=== PATIENT | female | born 1995 | race Caucasian/White ===

== ENCOUNTER 2017-03-09 12:23 | Emergency (ER) | payer OTHER ==
[2017-03-09 12:29] VITALS: BP 138/82; PULSE 94; RESP 16; TEMP 98.4; O2SAT 97
--- NOTE | 2017-03-09 14:24 | EDPHY ---
H & P Stated Complaint: Arrives on crutches w/ R knee injury during rugby game Time Seen by Provider: 03/09/17 13:46 HPI/ROS: Chief complaint: Right knee pain History of present illness: 21-year-old female presents to the emergency department for right knee pain. Patient was playing rugby when she twisted her knee. She felt a pop. Since then she has had pain. Difficulty ambulating. No report of open wounds. No abnormal coolness or paresthesias in the leg. No report of trauma to other parts of the body. - Personal History LMP (Females 10-55): 22-28 Days Ago Current Tetanus Diphtheria and Acellular Pertussis (TDAP): Yes - Medical/Surgical History Other PMH: healthy - Social History Smoking Status: Never smoked - Physical Exam Exam: General: Alert, nontoxic Skin: No open wounds to the right knee. Musculoskeletal: There is discomfort with both flexion extension. Diffuse tenderness. Joint does appear stable but somewhat limited due to discomfort. Vascular: DP and PT pulses 2+. Neurologic sensation intact in the right leg. Constitutional: Initial Vital Signs Temperature (C) 36.9 C 03/09/17 12:24 Heart Rate 94 03/09/17 12:24 Respiratory Rate 16 03/09/17 12:24 Blood Pressure 138/82 H 03/09/17 12:24 O2 Sat (%) 97 03/09/17 12:24 O2 Delivery Mode Room Air Allergies/Adverse Reactions: No Known Allergies Allergy (Unverified 03/09/17 12:29) Home Medications: Medication Instructions Recorded Hydrocodone/APAP 5/325 [[place] 1 tab PO Q6H #6 tab 03/09/17 5/325 (*)] Medical Decision Making - Diagnostics Imaging: I viewed and interpreted images myself Procedures: Procedure: Splint placement. A knee immobilizing splint was applied. After application of the splint I returned and re-examined the patient. The splint was adequately immobilizing the joint and distal to the splint the patient's circulation and sensation was intact. Patient given crutches ED Course/Re-evaluation: Patient seen under the supervision of my secondary supervising physician Dr. Amparo Whitten. Patient presents to the emergency department for a right knee injury. The leg is neurovascularly intact. X-rays are negative. I am concerned for soft tissue injury. She is placed in a knee immobilizer and given crutches. Pain management is discussed. She is asked to follow up with Orthopedics for recheck. Return precautions are given. Patient voiced understanding and agreement with plan. Differential Diagnosis: Included but not limited to contusion, sprain or strain, meniscal injury, ACL or PCL disruption, bony fracture Departure - Departure Disposition: Home, Routine, Self-Care Clinical Impression: Knee sprain Qualifiers: Encounter type: initial encounter Involved ligament of knee: unspecified ligament Laterality: right Qualified Code(s): S83.91XA - Sprain of unspecified site of right knee, initial encounter Condition: Good Instructions: Knee Sprain (ED) Additional Instructions: Follow-up with orthopedics for continued evaluation and care In regards to pain control see the following: Use ibuprofen [600] mg [3] times a day for the next 2-3 days for pain In addition You have been prescribed [[place]] for pain. [[place]] contains Tylenol, do not take extra Tylenol/acetaminophen/Apap with it. It is sedating. If symptoms worsen or new symptoms develop return to the emergency room for recheck Referrals: NONE *PRIMARY CARE P,. [Primary Care Provider] - As per Instructions Prescriptions: Hydrocodone/APAP 5/325 [[place] 5/325 (*)] 1 tab PO Q6H #6 tab
--- NOTE | 2017-03-09 14:24 | EDPHY ---
H & P Stated Complaint: Arrives on crutches w/ R knee injury during rugby game Time Seen by Provider: 03/09/17 13:46 HPI/ROS: Chief complaint: Right knee pain History of present illness: 21-year-old female presents to the emergency department for right knee pain. Patient was playing rugby when she twisted her knee. She felt a pop. Since then she has had pain. Difficulty ambulating. No report of open wounds. No abnormal coolness or paresthesias in the leg. No report of trauma to other parts of the body. - Personal History LMP (Females 10-55): 22-28 Days Ago Current Tetanus Diphtheria and Acellular Pertussis (TDAP): Yes - Medical/Surgical History Other PMH: healthy - Social History Smoking Status: Never smoked - Physical Exam Exam: General: Alert, nontoxic Skin: No open wounds to the right knee. Musculoskeletal: There is discomfort with both flexion extension. Diffuse tenderness. Joint does appear stable but somewhat limited due to discomfort. Vascular: DP and PT pulses 2+. Neurologic sensation intact in the right leg. Constitutional: Initial Vital Signs Temperature (C) 36.9 C 03/09/17 12:24 Heart Rate 94 03/09/17 12:24 Respiratory Rate 16 03/09/17 12:24 Blood Pressure 138/82 H 03/09/17 12:24 O2 Sat (%) 97 03/09/17 12:24 O2 Delivery Mode Room Air Allergies/Adverse Reactions: No Known Allergies Allergy (Unverified 03/09/17 12:29) Home Medications: Medication Instructions Recorded Hydrocodone/APAP 5/325 [[place] 1 tab PO Q6H #6 tab 03/09/17 5/325 (*)] Medical Decision Making - Diagnostics Imaging: I viewed and interpreted images myself Procedures: Procedure: Splint placement. A knee immobilizing splint was applied. After application of the splint I returned and re-examined the patient. The splint was adequately immobilizing the joint and distal to the splint the patient's circulation and sensation was intact. Patient given crutches ED Course/Re-evaluation: Patient seen under the supervision of my secondary supervising physician Dr. Amparo Whitten. Patient presents to the emergency department for a right knee injury. The leg is neurovascularly intact. X-rays are negative. I am concerned for soft tissue injury. She is placed in a knee immobilizer and given crutches. Pain management is discussed. She is asked to follow up with Orthopedics for recheck. Return precautions are given. Patient voiced understanding and agreement with plan. Differential Diagnosis: Included but not limited to contusion, sprain or strain, meniscal injury, ACL or PCL disruption, bony fracture Departure - Departure Disposition: Home, Routine, Self-Care Clinical Impression: Knee sprain Qualifiers: Encounter type: initial encounter Involved ligament of knee: unspecified ligament Laterality: right Qualified Code(s): S83.91XA - Sprain of unspecified site of right knee, initial encounter Condition: Good Instructions: Knee Sprain (ED) Additional Instructions: Follow-up with orthopedics for continued evaluation and care In regards to pain control see the following: Use ibuprofen [600] mg [3] times a day for the next 2-3 days for pain In addition You have been prescribed [[place]] for pain. [[place]] contains Tylenol, do not take extra Tylenol/acetaminophen/Apap with it. It is sedating. If symptoms worsen or new symptoms develop return to the emergency room for recheck Referrals: NONE *PRIMARY CARE P,. [Primary Care Provider] - As per Instructions Prescriptions: Hydrocodone/APAP 5/325 [[place] 5/325 (*)] 1 tab PO Q6H #6 tab
--- NOTE | 2017-03-09 14:24 | EDPHY ---
H & P Stated Complaint: Arrives on crutches w/ R knee injury during rugby game Time Seen by Provider: 03/09/17 13:46 HPI/ROS: Chief complaint: Right knee pain History of present illness: 21-year-old female presents to the emergency department for right knee pain. Patient was playing rugby when she twisted her knee. She felt a pop. Since then she has had pain. Difficulty ambulating. No report of open wounds. No abnormal coolness or paresthesias in the leg. No report of trauma to other parts of the body. - Personal History LMP (Females 10-55): 22-28 Days Ago Current Tetanus Diphtheria and Acellular Pertussis (TDAP): Yes - Medical/Surgical History Other PMH: healthy - Social History Smoking Status: Never smoked - Physical Exam Exam: General: Alert, nontoxic Skin: No open wounds to the right knee. Musculoskeletal: There is discomfort with both flexion extension. Diffuse tenderness. Joint does appear stable but somewhat limited due to discomfort. Vascular: DP and PT pulses 2+. Neurologic sensation intact in the right leg. Constitutional: Initial Vital Signs Temperature (C) 36.9 C 03/09/17 12:24 Heart Rate 94 03/09/17 12:24 Respiratory Rate 16 03/09/17 12:24 Blood Pressure 138/82 H 03/09/17 12:24 O2 Sat (%) 97 03/09/17 12:24 O2 Delivery Mode Room Air Allergies/Adverse Reactions: No Known Allergies Allergy (Unverified 03/09/17 12:29) Home Medications: Medication Instructions Recorded Hydrocodone/APAP 5/325 [[place] 1 tab PO Q6H #6 tab 03/09/17 5/325 (*)] Medical Decision Making - Diagnostics Imaging: I viewed and interpreted images myself Procedures: Procedure: Splint placement. A knee immobilizing splint was applied. After application of the splint I returned and re-examined the patient. The splint was adequately immobilizing the joint and distal to the splint the patient's circulation and sensation was intact. Patient given crutches ED Course/Re-evaluation: Patient seen under the supervision of my secondary supervising physician Dr. Amparo Whitten. Patient presents to the emergency department for a right knee injury. The leg is neurovascularly intact. X-rays are negative. I am concerned for soft tissue injury. She is placed in a knee immobilizer and given crutches. Pain management is discussed. She is asked to follow up with Orthopedics for recheck. Return precautions are given. Patient voiced understanding and agreement with plan. Differential Diagnosis: Included but not limited to contusion, sprain or strain, meniscal injury, ACL or PCL disruption, bony fracture Departure - Departure Disposition: Home, Routine, Self-Care Clinical Impression: Knee sprain Qualifiers: Encounter type: initial encounter Involved ligament of knee: unspecified ligament Laterality: right Qualified Code(s): S83.91XA - Sprain of unspecified site of right knee, initial encounter Condition: Good Instructions: Knee Sprain (ED) Additional Instructions: Follow-up with orthopedics for continued evaluation and care In regards to pain control see the following: Use ibuprofen [600] mg [3] times a day for the next 2-3 days for pain In addition You have been prescribed [[place]] for pain. [[place]] contains Tylenol, do not take extra Tylenol/acetaminophen/Apap with it. It is sedating. If symptoms worsen or new symptoms develop return to the emergency room for recheck Referrals: NONE *PRIMARY CARE P,. [Primary Care Provider] - As per Instructions Prescriptions: Hydrocodone/APAP 5/325 [[place] 5/325 (*)] 1 tab PO Q6H #6 tab
== END 2017-03-09 14:41 | disposition home or self-care (01) ==
DX: S83.91XA Sprain of unspecified site of right knee, initial encounter (principal); X58.XXXA Exposure to other specified factors, initial encounter; Y99.8 Other external cause status; Y93.63 Activity, rugby